=== PATIENT | female | born 1985 | race Caucasian/White ===

== ENCOUNTER 2020-07-29 18:45 | Emergency (ER) | payer OTHER, MEDICAID ==
[2020-07-29] MEDS ORDERED: Ketorolac 60 MG/2 ML SDV IM ONE (19:19)
--- NOTE | 2020-07-29 19:40 | EDM.PDOC ---
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 Patient reports left buttock pain. Patient denies hitting her head, loc, n, v, vision changes, neck pain, back pain, abd pain, urinary changes. Onset: Today Onset Date: 07/29/20 Duration: Hour(s): (5) Location: Reports: Other (Buttock) Front/Back Body Image: 1 - pain, tenderness, swelling, eccymosis. Quality: Reports: Ache Severity: Moderate Improves with: Reports: None Worsens with: Reports: None Associated Symptoms: Reports: No Other Symptoms. Denies: Confusion, Chest Pain, Cough, cough w sputum, Diaphoresis, Fever/Chills, Headaches, Loss of Appetite, Malaise, Nausea/Vomiting, Rash, Seizure, Shortness of Breath, Syncope, Weakness Left Buttock Pain Score (Numeric/FACES): 7 - Related Data Allergies Allergy/AdvReac Type Severity Reaction Status Date / Time Penicillins Allergy Other Verified 07/29/20 18:46 Home Meds: Home Meds ALPRAZolam [Xanax] 1 mg PO Q8H PRN 07/29/20 [History] Gabapentin [Neurontin] 800 mg PO BID 07/29/20 [History] Hydrocodone/Acetaminophen [Hydrocodone-Acetamin 5-325 mg] 1 tab PO TID PRN 07/29/20 [History] Mirtazapine [Remeron] 30 mg PO DAILY 07/29/20 [History] Zolpidem [Ambien] 10 mg PO BEDTIME 07/29/20 [History] 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: - Past Surgical History GI Surgical History: Reports: Hernia, Abdominal Female Surgical History: Reports: Section, Tubal Ligation Social & Family History - Family History Cardiac: Reports: None - Tobacco Use Tobacco Use Status *Q: Current Every Day Tobacco User Years of Tobacco use: 10 Packs/Tins Daily: 0.8 - Caffeine Use Caffeine Use: Reports: Coffee, Soda - Recreational Drug Use Recreational Drug Use: No Review of Systems - Review of Systems Review Of Systems: See Below Constitutional: Reports: No Symptoms Eyes: Reports: No Symptoms Ears: Reports: No Symptoms Nose: Reports: No Symptoms Mouth/Throat: Reports: No Symptoms Respiratory: Reports: No Symptoms Cardiovascular: Reports: No Symptoms GI/Abdominal: Reports: No Symptoms Genitourinary: Reports: No Symptoms Musculoskeletal: Reports: Other (left buttock pain) Skin: Reports: Bruising (left buttock) Neurological: Reports: No Symptoms Psychiatric: Reports: No Symptoms ED EXAM, GENERAL - Physical Exam Exam: See Below Exam Limited By: No Limitations General Appearance: Alert, WD/WN, No Apparent Distress Eye Exam: Bilateral Eye: EOMI, Normal Inspection, PERRL Ears: Normal External Exam, Normal Canal, Hearing Grossly Normal, Normal TMs Ear Exam: Bilateral Ear: Auricle Normal, Canal Normal, TM normal Nose: Normal Inspection, Normal Mucosa, No Blood Throat/Mouth: Normal Inspection, Normal Lips, Normal Teeth, Normal Gums, Normal Oropharynx, Normal Voice, No Airway Compromise Head: Atraumatic, Normocephalic Neck: Normal Inspection, Supple, Non-Tender, Full Range of Motion Respiratory/Chest: No Respiratory Distress, Lungs Clear, Normal Breath Sounds, No Accessory Muscle Use, Chest Non-Tender Cardiovascular: Normal Peripheral Pulses, Regular Rate, Rhythm, No Edema, No Gallop, No JVD, No Murmur, No Rub Peripheral Pulses: 2+: Radial (L), Radial (R), Posterior Tibial (L), Posterior Tibial (R) GI/Abdominal: Soft, Non-Tender (Female) Exam: Deferred Rectal (Female) Exam: Deferred, Other (left buttock swelling, tenderness, eccyhmosis. Yanique CORDOVA at bedside. ) Back Exam: Normal Inspection, Full Range of Motion. No: CVA Tenderness (L), CVA Tenderness (R), Decreased Range of Motion, Muscle Spasm, Paraspinal Tenderness, Vertebral Tenderness Extremities: Normal Inspection, Normal Range of Motion, Non-Tender, No Pedal Edema, Normal Capillary Refill Neurological: Alert, Oriented, Normal Cognition, Normal Gait, No Motor/Sensory Deficits Psychiatric: Normal Affect, Normal Mood Skin Exam: Warm, Dry, Intact, No Rash, Ecchymosis (left buttock) Course - Vital Signs Last Recorded V/S: Last Vital Signs Temp 98 F 07/29/20 18:49 Pulse 108 H 07/29/20 18:49 Resp 18 07/29/20 18:49 BP 134/71 07/29/20 18:49 Pulse Ox 97 07/29/20 18:49 - Orders/Labs/Meds Orders: Active Orders 24 hr Category Date Time Status Sacrum Coccyx Min 2V [CR] Stat Exams 07/29/20 19:19 Taken HCG QUALITATIVE,SERUM [CHEM] Stat Lab 07/29/20 18:58 Stop Req Meds: Medications Discontinued Medications Generic Name Dose Route Start Last Admin Trade Name Freq PRN Reason Stop Dose Admin Ketorolac Tromethamine 60 mg 07/29/20 19:19 Toradol IM 07/29/20 19:20 ONETIME ONE - Radiology Interpretation Free Text/Narrative:: Coccyx xray: No acute fracture Departure - Departure Time of Disposition: 19:41 Disposition: Home, Self-Care 01 Condition: Good Clinical Impression: Traumatic hematoma of buttock Qualifiers: Encounter type: initial encounter Qualified Code(s): S30.0XXA - Contusion of lower back and pelvis, initial encounter - Discharge Information *PRESCRIPTION DRUG MONITORING PROGRAM REVIEWED*: Not Applicable *COPY OF PRESCRIPTION DRUG MONITORING REPORT IN PATIENT LUCILA: Not Applicable Instructions: Contusion, [id number] Forms: ED Department Discharge Additional Instructions: Followup with primary care provider Return to the ER for worsening of condition or emergent concerns Ice Tylenol as needed for pain or your prescribed medications Donut as needed Sepsis Event Note (ED) - Evaluation Sepsis Screening Result: No Definite Risk - Focused Exam Vital Signs: Vital Signs Temp Pulse Resp BP Pulse Ox 07/29/20 18:49 98 F 108 H 18 134/71 97 - My Orders Last 24 Hours: My Active Orders 07/29/20 18:58 HCG QUALITATIVE,SERUM [CHEM] Stat 07/29/20 19:19 Sacrum Coccyx Min 2V [CR] Stat - Assessment/Plan Last 24 Hours: My Active Orders 07/29/20 18:58 HCG QUALITATIVE,SERUM [CHEM] Stat 07/29/20 19:19 Sacrum Coccyx Min 2V [CR] Stat Plan: PLEASE SEE RN NOTE FOR PFSH
== END 2020-07-29 19:55 | disposition home or self-care (01) ==
LOC: CC.ED 18:45
DX: S30.0XXA Contusion of lower back and pelvis, initial encounter (principal); Z88.0 Allergy status to penicillin; Z72.0 Tobacco use; Z79.899 Other long term (current) drug therapy; W01.0XXA Fall on same level from slipping, tripping and stumbling without subsequent striking against object, initial encounter; Y99.0 Civilian activity done for income or pay
CPT/HCPCS: 72220; 96372; 99283; J1885